=== PATIENT | male | born 1985 | race African-American/Black ===

== ENCOUNTER 2017-03-08 20:27 | Emergency (ER) | payer SELFPAY ==
[~2017-03-08 20:27] MED LIST: METR-1 PO; Z.0.NO CURRENT MEDS
[2017-03-08 20:30] VITALS: BP 165/104; PULSE 77; RESP 16; TEMP 97.9; O2SAT 95
== END 2017-03-08 20:57 | disposition left against medical advice (07) ==
LOC: NED 20:27
DX: Z04.9 Encounter for examination and observation for unspecified reason (principal)
CPT/HCPCS: 99281

== ENCOUNTER 2017-10-22 14:49 | Emergency (ER) | payer SELFPAY ==
[~2017-10-22] VITALS: Ht 180.3 cm; Wt 87.0 kg
[2017-10-22 14:51] VITALS: BP 152/78; PULSE 112; RESP 16; TEMP 97.9; O2SAT 97
--- NOTE | 2017-10-22 16:07 | PD ---
HPI Chief Complaint: Injury Time Seen by Provider: 16:01 Travel History International Travel<30 days: No Contact w/Intl Traveler<30days: No Traveled to known affect area: No History of Present Illness HPI 31-year-old male complains of left foot left ankle pain. Patient is to the left foot and left ankle yesterday. Patient states the pain is sharp pain localized to the anterior aspect the left ankle and dorsal aspect of the left foot. Patient denies any pain radiation. Patient states that the pain is worse with weightbearing. On a scale of 1-10 the pain is a 7. PFSH Past Medical History Medical History: Denies Significant Hx Kidney Stones: Yes Tetanus Vaccination: < 5 Years Influenza Vaccination: No Past Surgical History Surgical History: No Previous Surgery Social History Alcohol Use: Yes (WEEKENDS) Tobacco Use: Yes (1PPD) Substance Use: No Allergies-Medications (Allergen,Severity, Reaction): Coded Allergies: No Known Allergies (Verified Adverse Reaction, Unknown, 10/22/17) Reported Meds & Prescriptions Reported Meds & Active Scripts Active Flagyl (Metronidazole) 500 Mg Tab 500 Mg PO BID 7 Days Reported No Current Meds (Miscellaneous Medication) Misc Review of Systems General / Constitutional: No: Fever Eyes: No: Visual changes HENT: No: Headaches Cardiovascular: No: Chest Pain or Discomfort Respiratory: No: Shortness of Breath Gastrointestinal: No: Abdominal Pain Genitourinary: No: Dysuria Musculoskeletal: Positive: Pain Skin: No Rash Neurologic: No: Weakness Psychiatric: No: Depression Endocrine: No: Polydipsia Hematologic/Lymphatic: No: Easy Bruising Physical Exam Narrative GENERAL: Well-nourished, well-developed patient. SKIN: Focused skin assessment warm/dry. HEAD: Normocephalic. EYES: No scleral icterus. No injection or drainage. NECK: Supple, trachea midline. No JVD or lymphadenopathy. CARDIOVASCULAR: Regular rate and rhythm without murmurs, gallops, or rubs. RESPIRATORY: Breath sounds equal bilaterally. No accessory muscle use. GASTROINTESTINAL: Abdomen soft, non-tender, nondistended. MUSCULOSKELETAL: No cyanosis, or edema. BACK: Nontender without obvious deformity. No CVA tenderness. Patient has mild to moderate tenderness palpation anterior aspect the left ankle with soft tissue swelling and tenderness on palpation dorsal aspect of the left foot. Full range of motion of the toes. Data Data Last Documented VS Vital Signs Date Time Temp Pulse Resp B/P (MAP) Pulse Ox O2 Delivery O2 Flow Rate FiO2 10/22/17 14:51 97.9 112 16 152/78 (102) 97 Orders Orders Ankle, Complete ([id number]) (10/22/17 16:04) Foot, Complete ([id number]) (10/22/17 16:04) MDM Medical Decision Making Medical Screen Exam Complete: Yes Emergency Medical Condition: Yes Interpretation(s) Last Impressions Foot X-Ray 10/22/17 1604 Signed Impressions: Service Date/Time: Sunday, October 22, 2017 16:19 - CONCLUSION: Negative for fracture or dislocation. Follow up in 7-10 days is suggested if symptoms persist. Bruno Haines MD FACR Ankle X-Ray 10/22/17 1604 Signed Impressions: Service Date/Time: Sunday, October 22, 2017 16:16 - CONCLUSION: 1. No acute fracture or dislocation. Umair De Jesus MD Differential Diagnosis Differential diagnosis: Sprain, fracture Narrative Course 31-year-old male with left foot left ankle injury. Darvin wrap left foot and ankle. Diagnosis Primary Impression: Left ankle sprain Qualified Codes: S93.402A - Sprain of unspecified ligament of left ankle, initial encounter Additional Impression: Sprain of left foot Qualified Codes: S93.602A - Unspecified sprain of left foot, initial encounter Patient Instructions: General Instructions Additional Instructions: Ibuprofen as needed for pain. Follow-up with orthopedist persistent problem. Med/Other Pt SpecificInfo: Prescription(s) given Scripts Ibuprofen (Ibuprofen) 600 Mg Tab 600 MG PO TID for Pain, #30 TAB 0 Refills Prov: Deshawn Vazquez MD 10/22/17 Disposition: 01 DISCHARGE HOME Condition: Stable Deshawn Vazquez MD Oct 22, 2017 16:07
--- NOTE | 2017-10-22 16:29 | RADRPT ---
EXAM DATE/TIME: 10/22/2017 16:16 [facility] COMPARISON: No previous studies available for comparison. INDICATIONS : Pain from fall with twisting motion. MEDICAL HISTORY : None. SURGICAL HISTORY : None. ENCOUNTER: Initial ACUITY: 1 day PAIN SCORE: 4/10 LOCATION: Right lateral ankle. FINDINGS: Three view exam was performed of the left ankle. The bony structures are in normal alignment. No ev idence of fracture, dislocation, or soft tissue swelling. The ankle mortise is intact. No radiopaqu e foreign bodies are seen. Bony mineralization is normal. CONCLUSION: 1. No acute fracture or dislocation. Umair De Jesus MD on October 22, 2017 at 16:27 Board Certified Radiologist. This report was verified electronically.
--- NOTE | 2017-10-22 16:31 | RADRPT ---
EXAM DATE/TIME: 10/22/2017 16:19 [facility] COMPARISON: No previous studies available for comparison. INDICATIONS : Pain from fall with twisting motion. MEDICAL HISTORY : None. SURGICAL HISTORY : None. ENCOUNTER: Initial ACUITY: 1 day PAIN SCORE: 3/10 LOCATION: Left lateral superior surface of foot. FINDINGS: Three view examination of the left foot demonstrates no soft tissue swelling, dislocation, or fractur e. The tarsal bones appear intact. The interphalangeal and metatarsophalangeal joints are intact. The calcaneus is intact. Bony mineralization is normal. CONCLUSION: Negative for fracture or dislocation. Follow up in 7-10 days is suggested if symptoms persist. Bruno Haines MD FACR on October 22, 2017 at 16:28 Board Certified Radiologist. This report was verified electronically.
[2017-10-22] MEDS ORDERED: IBUP-232 PO (17:11)
== END 2017-10-22 17:21 | disposition home or self-care (01) ==
LOC: NEPD 14:49
DX: S93.402A Sprain of unspecified ligament of left ankle, initial encounter (principal); S93.602A Unspecified sprain of left foot, initial encounter; X58.XXXA Exposure to other specified factors, initial encounter
CPT/HCPCS: 73610; 73630; 99283

== ENCOUNTER 2017-10-27 11:02 | Emergency (ER) | payer SELFPAY ==
[~2017-10-27] VITALS: Ht 180.3 cm; Wt 87.0 kg
[~2017-10-27 11:02] MED LIST changes: +IBUP-232 PO
[2017-10-27 11:04] VITALS: BP 134/71; PULSE 82; RESP 16; TEMP 98.9; O2SAT 97
--- NOTE | 2017-10-27 11:24 | PD ---
HPI Chief Complaint: Medical Clearance Time Seen by Provider: 11:15 Travel History International Travel<30 days: No Contact w/Intl Traveler<30days: No Traveled to known affect area: No History of Present Illness HPI 31-year-old male presents to the emergency department requesting a work release note to return back to work with no restrictions. He was seen here on October 22 for left ankle sprain and has a note to return back to work but it doesn't state restriction limits on it and his work will not accept it. He denies ankle pain. Denies paresthesias, loss of sensation, decreased range motion, decreased strength to the affected extremity. Is ambulatory on the affected extremity about any type of support. No known aggravating or relieving factors. Has no emergent medical complaints. No known allergies. Has no other medical complaints. Complaints are mild in severity. No other modifying factors or associated signs and symptoms. History Social History Alcohol Use: Yes (WEEKENDS) Tobacco Use: Yes (1PPD) Allergies-Medications (Allergen,Severity, Reaction): Coded Allergies: No Known Allergies (Verified Adverse Reaction, Unknown, 10/22/17) Reported Meds & Prescriptions Reported Meds & Active Scripts Active Ibuprofen 600 Mg Tab 600 Mg PO TID Flagyl (Metronidazole) 500 Mg Tab 500 Mg PO BID 7 Days Reported No Current Meds (Miscellaneous Medication) Misc Review of Systems Except as stated in HPI: all other systems reviewed are Neg Physical Exam Narrative GENERAL: Well-nourished, well-developed black male patient, in no acute distress SKIN: Warm and dry. HEAD: Atraumatic. Normocephalic. EYES: Pupils equal and round. No scleral icterus. No injection or drainage. ENT: Mucosa pink and moist. Airway patent. NECK: Trachea midline. CARDIOVASCULAR: Regular rate. RESPIRATORY: No accessory muscle use. GASTROINTESTINAL: Flat. MUSCULOSKELETAL: Left ankle without tenderness on palpation; without erythema, edema, ecchymosis; with full range of motion; sensory intact and equal and 2+ pedal pulse. No obvious deformities. No clubbing. No cyanosis. No edema. NEUROLOGICAL: Awake and alert. Oriented 3. No obvious cranial nerve deficits. Motor grossly within normal limits. Normal speech. PSYCHIATRIC: Appropriate mood and affect; insight and judgment normal. Data Data Last Documented VS Vital Signs Date Time Temp Pulse Resp B/P (MAP) Pulse Ox O2 Delivery O2 Flow Rate FiO2 10/27/17 11:04 98.9 82 16 134/71 (92) 97 Room Air MDM Medical Screen Exam Complete: Yes Emergency Medical Condition: No Differential Diagnosis Medical clearance Narrative Course Vital signs are stable and the patient is stable for outpatient follow-up and treatment. The patient has no urgent or emergent medical complaints. There is no emergent or urgent medical need at this time. I instructed the patient to follow up with their primary care provider. A medical screening exam was performed: At the time of evaluation the presenting medical condition was determined not to be of an emergent nature. The patient was given the option of receiving additional care, but declined. Patient was given options for additional community resources from which to obtain care. The Patient Has Been advised to seek medical attention for their presenting complaint. The patient has been advised to return to the ER at any time if an emergent condition develops. Primary Impression: Encounter for medical screening examination Condition: Stable Shawnee Villa Oct 27, 2017 11:24
== END 2017-10-27 11:36 | disposition left against medical advice (07) ==
LOC: NEPD 11:02
DX: S93.402D Sprain of unspecified ligament of left ankle, subsequent encounter (principal); X58.XXXD Exposure to other specified factors, subsequent encounter
CPT/HCPCS: 99281

== ENCOUNTER 2017-12-08 16:22 | Emergency (ER) | payer SELFPAY ==
[~2017-12-08] VITALS: Ht 180.3 cm; Wt 86.0 kg
[2017-12-08 16:23] VITALS: BP 125/61; PULSE 81; RESP 16; TEMP 97.4; O2SAT 98
--- NOTE | 2017-12-08 18:30 | PD ---
Physical Exam Date Seen by Provider: Dec 08, 2017 Time Seen by Provider: 17:22 Narrative 32 year old male presents to the emergency department for evaluation of left foot pain and swelling that started approximately a week ago. He states he fractured it over a month ago, but never followed up with a sole scraper. Current pain is 6/10. Data Data Last Documented VS Vital Signs Date Time Temp Pulse Resp B/P (MAP) Pulse Ox O2 Delivery O2 Flow Rate FiO2 12/08/17 16:23 97.4 81 16 125/61 (82) 98 Room Air MDM Supervised Visit with BLAKE: No Narrative Course 32-year-old male presents to the emergency department for evaluation of left foot pain and swelling. Patient is initially seen in triage. He left AGAINST MEDICAL ADVICE before he could be moved to medical bed. Diagnosis Primary Impression: Left against medical advice Disposition: 07 AGAINST MEDICAL ADVICE Lilliana Burch Dec 08, 2017 18:30
== END 2017-12-08 21:33 | disposition left against medical advice (07) ==
LOC: NED 16:22
DX: Z53.21 Procedure and treatment not carried out due to patient leaving prior to being seen by health care provider (principal)
CPT/HCPCS: 99281

== ENCOUNTER 2017-12-09 03:16 | Emergency (ER) | payer SELFPAY ==
[2017-12-09 03:16] VITALS: BP 146/73; PULSE 72; RESP 16; TEMP 97.6; O2SAT 100
--- NOTE | 2017-12-09 04:01 | PD ---
HPI Chief Complaint: Injury Time Seen by Provider: 03:40 Travel History International Travel<30 days: No Contact w/Intl Traveler<30days: No Traveled to known affect area: No History of Present Illness HPI Patient is a 32-year-old male presented to the emergency department for a work note. Patient states he told a coworker that his foot was sore and now work is requesting a note to have him cleared to return. Patient states that he broke his foot in October. He is ambulatory, he denies any pain. He denies any other injury. Patient states his foot swells at times after being at work. He has no complaints at this time. [facility] Past Medical History Medical History: Denies Significant Hx Kidney Stones: Yes Past Surgical History Surgical History: No Previous Surgery Social History Alcohol Use: Yes (WEEKEND) Tobacco Use: Yes (1PPD) Substance Use: No Allergies-Medications (Allergen,Severity, Reaction): Coded Allergies: No Known Allergies (Verified Adverse Reaction, Unknown, 12/09/17) Reported Meds & Prescriptions Reported Meds & Active Scripts Active No Active Prescriptions or Reported Medications Review of Systems Except as stated in HPI: all other systems reviewed are Neg Physical Exam Narrative GENERAL: Well-developed, well-nourished, alert male. Resting comfortably in no acute distress. SKIN: Warm and dry. HEAD: Normocephalic. EYES: No scleral icterus. No injection or drainage. NECK: Supple, trachea midline. No JVD or lymphadenopathy. CARDIOVASCULAR: Regular rate and rhythm without murmurs, gallops, or rubs. RESPIRATORY: Breath sounds equal bilaterally. No accessory muscle use. GASTROINTESTINAL: Abdomen soft, non-tender, nondistended. MUSCULOSKELETAL: No cyanosis, or edema. No obvious deformity. 2+ dorsalis pedal pulses bilaterally. BACK: Nontender without obvious deformity. No CVA tenderness. Data Data Last Documented VS Vital Signs Date Time Temp Pulse Resp B/P (MAP) Pulse Ox O2 Delivery O2 Flow Rate FiO2 12/09/17 03:16 97.6 72 16 146/73 (97) 100 MDM Medical Decision Making Medical Screen Exam Complete: Yes Emergency Medical Condition: No Medical Record Reviewed: Yes Interpretation(s) Vital Signs Date Time Temp Pulse Resp B/P (MAP) Pulse Ox O2 Delivery O2 Flow Rate FiO2 12/09/17 03:16 97.6 72 16 146/73 (97) 100 Differential Diagnosis Fracture versus sprain versus strain versus dependent edema versus normal examination versus other Narrative Course Patient is a 32-year-old male presenting for a work note to return to work because he complained of a coworker that his foot was swollen. Patient reported that he broke his foot last month. Upon review of medical records patient had no fracture noted on imaging reports that were performed on . And today there is no edema or deformity noted to the left foot. Patient is ambulatory, his gait is stable. Patient was provided with x-ray reports to show his work that he had no fracture. He was given a copy of the [facility] flyer. He was encouraged to follow-up with them. A medical screening exam was performed: At the time of evaluation the presenting medical condition was determined not to be of an emergent nature. The patient was given the option of receiving additional care, but declined. Patient was given options for additional community resources from which to obtain care. The Patient Has Been advised to seek medical attention for their presenting complaint. The patient has been advised to return to the ER at any time if an emergent condition develops. Diagnosis Primary Impression: Encounter for medical screening examination Scripts No Active Prescriptions or Reported Meds Condition: Amanda Harman Dec 09, 2017 04:01
== END 2017-12-09 09:17 | disposition left against medical advice (07) ==
LOC: NEPD 03:16
DX: M79.89 Other specified soft tissue disorders (principal)
CPT/HCPCS: 99281

== ENCOUNTER 2017-12-13 03:08 | Emergency (ER) | payer SELFPAY ==
[~2017-12-13] VITALS: Ht 180.3 cm; Wt 86.0 kg
[2017-12-13 03:14] VITALS: BP 141/83; PULSE 94; RESP 18; TEMP 97.5; O2SAT 99
--- NOTE | 2017-12-13 03:28 | PD ---
HPI Chief Complaint: Injury Time Seen by Provider: 03:28 Travel History International Travel<30 days: No Contact w/Intl Traveler<30days: No Traveled to known affect area: No History of Present Illness HPI Patient is a 32-year-old male that presented to the emergency department for a work note. Patient had a foot injury in October, he complained about foot swelling last week and was told he needed a medical clearance note in order to return to work. Patient has had no injury or trauma. He has no foot pain or swelling today. Patient was in the emergency department 4 days ago with the same request, at that time he was given copies of his x-rays to show to his work. Because those x-rays did not have occurring date they were not accepted the patient return today to the emergency department [facility] Past Medical History Medical History: Denies Significant Hx Kidney Stones: Yes Past Surgical History Surgical History: No Previous Surgery Social History Alcohol Use: Yes (WEEKENDS) Tobacco Use: Yes Substance Use: No Allergies-Medications (Allergen,Severity, Reaction): Coded Allergies: No Known Allergies (Verified Adverse Reaction, Unknown, 12/13/17) Reported Meds & Prescriptions Reported Meds & Active Scripts Active No Active Prescriptions or Reported Medications Review of Systems Except as stated in HPI: all other systems reviewed are Neg Physical Exam Narrative GENERAL: Well-developed, well-nourished, alert male. Presenting in no acute distress. SKIN: Warm and dry. HEAD: Normocephalic. EYES: No scleral icterus. No injection or drainage. NECK: Supple, trachea midline. No JVD or lymphadenopathy. CARDIOVASCULAR: Regular rate and rhythm without murmurs, gallops, or rubs. RESPIRATORY: Breath sounds equal bilaterally. No accessory muscle use. GASTROINTESTINAL: Abdomen soft, non-tender, nondistended. MUSCULOSKELETAL: No cyanosis, or edema. BACK: Nontender without obvious deformity. No CVA tenderness. Data Data Last Documented VS Vital Signs Date Time Temp Pulse Resp B/P (MAP) Pulse Ox O2 Delivery O2 Flow Rate FiO2 12/13/17 03:14 97.5 94 18 141/83 (102) 99 MDM Medical Decision Making Medical Screen Exam Complete: Yes Emergency Medical Condition: No Medical Record Reviewed: Yes Interpretation(s) Vital Signs Date Time Temp Pulse Resp B/P (MAP) Pulse Ox O2 Delivery O2 Flow Rate FiO2 12/13/17 03:14 97.5 94 18 141/83 (580) 08 Differential Diagnosis Normal examination versus foot sprain versus arthritis versus other Narrative Course Patient is a well-appearing 32-year-old male presenting for a work note. He has no complaints at this time. He reported to his work that he had foot swelling over week ago and was required to presented note in order to return. He was given copies of his x-rays on 12/09/17 that showed patient never had a foot fracture. He stated that because they were not dated with a recent date he could not use them. Patient was given new copies of the x-rays today with current date and my extension. A medical screening exam was performed: At the time of evaluation the presenting medical condition was determined not to be of an emergent nature. The patient was given the option of receiving additional care, but declined. Patient was given options for additional community resources from which to obtain care. The Patient Has Been advised to seek medical attention for their presenting complaint. The patient has been advised to return to the ER at any time if an emergent condition develops. Diagnosis Primary Impression: Encounter for medical screening examination Scripts No Active Prescriptions or Reported Meds Condition: Amanda Harman Dec 13, 2017 03:28
== END 2017-12-13 08:12 | disposition left against medical advice (07) ==
LOC: NEPD 03:08
DX: S99.929A Unspecified injury of unspecified foot, initial encounter (principal); X58.XXXA Exposure to other specified factors, initial encounter; Z72.0 Tobacco use
CPT/HCPCS: 99281